=== PATIENT | male | born 1935 | race Caucasian/White ===

== ENCOUNTER → 2020-03-03 | Outpatient (CLI) | payer MEDICARE, BC ==
--- NOTE | 2020-03-03 12:50 | CT ---
EXAMINATION TYPE: CT abdomen pelvis wo con DATE OF EXAM: 03/03/2020 COMPARISON: None HISTORY: Prostate carcinoma CT DLP: 323.80 mGycm Automated exposure control for dose reduction was used. TECHNIQUE: Helical acquisition of images from the lung bases through the pelvis. Patient received or al contrast only. FINDINGS: Lack of intravenous contrast could compromise sensitivity. LUNG BASES: No significant abnormality is appreciated. AORTA: No significant abnormality is appreciated there are some coronary artery calcifications prese nt.. LIVER/GB: Calcification present along the posterior aspect of the right lobe liver at the level of th e diaphragm measures 16 mm and is of questionable clinical significance. Gallbladder is normal.. PANCREAS: No significant abnormality is seen. SPLEEN: No significant abnormality is seen. ADRENALS: No significant abnormality is seen. KIDNEYS: No significant abnormality is seen. REPRODUCTIVE ORGANS: Prostate is enlarged. URINARY BLADDER: Thickening of the urinary bladder wall could be due to chronic outlet obstruction BOWEL: Diverticular change is present throughout the colon FREE AIR: No Free Air is visible. ASCITES: None visible. PELVIC ADENOPATHY: None visualized. RETROPERITONEAL ADENOPATHY: No Retroperitoneal Adenopathy visible. OSSEOUS STRUCTURES: Degenerative disc changes, facet arthropathy noted at the lumbar spine, probable Schmorl's node present superior endplate L5, inferior plate L4. IMPRESSION: NONCONTRAST EXAM. PROSTATIC ENLARGEMENT AND POSSIBLY BLADDER OUTLET OBSTRUCTION CHANGES DESCRIBED. DIVERTICULOSIS. ADDITIONAL FINDINGS ABOVE.
--- NOTE | 2020-03-03 14:58 | NM ---
EXAMINATION TYPE: NM bone scan whole body DATE OF EXAM: 03/03/2020 COMPARISON: CT same date HISTORY: Prostate carcinoma Delayed whole-body scanning was performed following the injection of 24.8 mCi Tc 99m MDP. Images acq uired 3 hours post injection. FINDINGS: Soft tissue uptake is normal. Uptake within the spine is likely degenerative. Uptake within the feet, ankles, knees, wrists, elbows, hips and shoulders and sternoclavicular joints is likely degenerative . Uptake in the maxilla and mandible is likely due to periodontal disease. No suspicious areas of inc reased or decreased radiopharmaceutical uptake. IMPRESSION: No evident metastatic disease.
== END | disposition home or self-care (01) ==
LOC: RADNMMAIN 09:51
PROVIDERS: ATTEND Urology
DX: C61 Malignant neoplasm of prostate (principal); K57.30 Diverticulosis of large intestine without perforation or abscess without bleeding; K76.89 Other specified diseases of liver; R93.41 Abnormal radiologic findings on diagnostic imaging of renal pelvis, ureter, or bladder
CPT/HCPCS: 82565; 84520; 74176; 36415; 78306; A9503

== ENCOUNTER → 2022-03-29 | Outpatient (CLI) | payer MEDICARE, BC ==
--- NOTE | 2022-03-29 12:39 | US ---
EXAMINATION TYPE: US kidneys/renal and bladder DATE OF EXAM: 03/29/2022 COMPARISON: CT abdomen pelvis 03/03/2020. CLINICAL HISTORY: N18.31 CHRONIC KIDNEY DISEASE, STAGE 3A. EXAM MEASUREMENTS: Right Kidney: 8.6 x 4.2 x 5.2 cm Left Kidney: 8.8 x 4.8 x 3.9 cm Right Kidney: Mildly thinned cortex. No solid deforming mass or shadowing calculi. No hydronephrosis. Left Kidney: wnl . No solid deformity mass or shadowing calculi. No hydronephrosis. Bladder: Multiple diverticula visualized. Otherwise unremarkable. Bilateral Jets seen: Yes IMPRESSION: 1. No hydronephrosis or shadowing renal calculi. 2. Mild cortical thinning of the right kidney. 3. Several bladder diverticula.
== END | disposition home or self-care (01) ==
LOC: RADUSWWP 11:56
PROVIDERS: ATTEND Internal Medicine Nephrology
DX: N18.31 Chronic kidney disease, stage 3a (principal); N32.3 Diverticulum of bladder
CPT/HCPCS: 76770

== ENCOUNTER → 2023-11-26 | Outpatient (CLI) | payer MEDICARE, BC | END | disposition home or self-care (01) | LOC: LABWHC1 10:23 | PROVIDERS: ATTEND Urology | DX: C61 Malignant neoplasm of prostate (principal) | CPT/HCPCS: 36415; 84153 ==